=== PATIENT | female | born 1940 | race Caucasian/White ===

== ENCOUNTER 2024-12-22 09:49 | Emergency (ER) | payer MEDICARE, BC ==
[~2024-12-22] VITALS: Ht 170.2 cm; Wt 66.7 kg
[~2024-12-22 09:49] MED LIST: ARIP10 PO; Abilify2 MG PO; Amitriptyline H10 MG PO; Antacid500 MG PO; CALCAVITDA PO; CLON1 PO; CYCL0.05OP; CYCL10 PO; EFFEXOR; ESOM20 PO; Effexor Xr150 MG PO; FISH1000 PO; Ibuprofen Ib200 MG PO; Inderal60 MG PO; MECL25 PO; MELO7.5 PO; Multiple Vitam1 EAC1 PO; TOPI25 PO; TRAM50 PO; ZOLPIDEM TARTRA10 MG PO
[2024-12-22 10:16] VITALS: BP 113/71
[2024-12-22] MEDS ORDERED: Lidocaine 4% 1 Patch TOP ONE (10:25)
[2024-12-22] MEDS ORDERED: Acetaminophen 500 MG Tab PO ONE (10:25)
[2024-12-22] MEDS ORDERED: Cyclobenzaprine HCl 10 MG Tab PO ONE (10:55)
[2024-12-22] MEDS ORDERED: LIDO700A20 TOP (12:44)
[2024-12-22] MEDS ORDERED: CYCL10 PO (12:44)
[2024-12-22] MEDS ORDERED: IBUP800 PO (12:44)
[2024-12-22] MEDS ORDERED: Ketorolac Tromethamine 30mg Vial IM ONE (12:45)
== END 2024-12-22 13:13 | disposition home or self-care (01) ==
LOC: ER 09:49
DX: M54.41 Lumbago with sciatica, right side (principal); Z79.899 Other long term (current) drug therapy; Z88.1 Allergy status to other antibiotic agents; Z88.8 Allergy status to other drugs, medicaments and biological substances
CPT/HCPCS: 93971; 96372; 99283-25; A9270; J1885